=== PATIENT | male | born 1970 | race Caucasian/White ===

== ENCOUNTER 2022-10-17 04:11 | Day surgery (SDC) | payer OTHER ==
[2022-10-15 16:01] VITALS: BMI 29.7
[2022-10-17] MEDS ORDERED: KETAMINE HCL 500 MG/10 ML VIAL ONE (06:56)
[2022-10-17] MEDS ORDERED: SIMETHICONE 40 MG/0.6 ML BOTTLE ONE (07:43)
[2022-10-17 08:35] VITALS: RESP 22
[2022-10-17 08:48] VITALS: PULSE 83
[2022-10-17 09:16] VITALS: BP 117/80; TEMP 98
== END 2022-10-17 09:35 | disposition home or self-care (01) ==
LOC: JASU-ENDO 04:11 → MERGE 08:00 → JASU-ENDO 09:35
PROVIDERS: ATTEND Internal Medicine Gastroenterology
PROC: 0DJD8ZZ Inspection of Lower Intestinal Tract, Via Natural or Artificial Opening Endoscopic (ICD-10-PCS; principal; 2022-10-17 08:00)
DX: Z12.11 Encounter for screening for malignant neoplasm of colon (principal); K64.8 Other hemorrhoids; K57.30 Diverticulosis of large intestine without perforation or abscess without bleeding

== ENCOUNTER 2022-12-05 04:23 | Day surgery (SDC) | payer OTHER ==
[2022-10-29 16:22] VITALS: BMI 27.3
[2022-12-05 13:29] VITALS: TEMP 98
[2022-12-05 13:32] VITALS: BP 144/95; PULSE 70; RESP 16
== END 2022-12-05 13:38 | disposition home or self-care (01) ==
LOC: JASU-ENDO 04:23
PROVIDERS: ATTEND Internal Medicine Gastroenterology
PROC: 0DB78ZX Excision of Stomach, Pylorus, Via Natural or Artificial Opening Endoscopic, Diagnostic (ICD-10-PCS; 2022-12-05)
PROC: 0DB68ZX Excision of Stomach, Via Natural or Artificial Opening Endoscopic, Diagnostic (ICD-10-PCS; principal; 2022-12-05 11:00)
DX: K29.50 Unspecified chronic gastritis without bleeding (principal); B96.81 Helicobacter pylori [H. pylori] as the cause of diseases classified elsewhere; I10 Essential (primary) hypertension
CPT/HCPCS: 88305-TC; 88341-TC; 88342-TC

== ENCOUNTER 2023-07-09 04:58 | Day surgery (SDC) | payer OTHER ==
[2023-07-08 12:48] VITALS: BMI 28.1
[~2023-07-09 04:58] MED LIST: ACETAMINOPHEN 325 MG TABLET (FP) PO PRN; OFLOXACIN 0.3% OPHTHALMIC SOLUTION 5 ML BOTTLE OP SCH; VANCOMYCIN 500 MG VIAL (RESTRICTED TO ID ONLY) IVPB ONE
[2023-07-09] MEDS ORDERED: LIDOCAINE HCL/PF 1% SDV 5ML VIAL ONE (07:12)
[2023-07-09] MEDS ORDERED: TETRACAINE 0.5% OPHTH SOLN 2 ML BOTTLE ONE (07:27)
[2023-07-09] MEDS ORDERED: POVIDONE-IODINE 5% OPHTHALMIC PREP 30 ML SOLUTION ONE (07:27)
[2023-07-09] MEDS ORDERED: TRYPAN BLUE 0.5 ML DISP.SYRIN ONE (07:28)
[2023-07-09] MEDS: KETOROLAC TROMETHAMINE 0.5% EYE DROP 1 DROP DROPS OP SCH ×3 (10:40→10:50)
[2023-07-09] MEDS: TROPICAMIDE 1% OPHTH SOLN 15 ML BOTTLE OP SCH ×3 (10:40→10:50)
[2023-07-09] MEDS: PHENYLEPHRINE 2.5% OPHTH SOLN 15 ML BOTTLE OP SCH ×3 (10:40→10:50)
[2023-07-09] MEDS: CYCLOPENTOLATE HCL 1% OPHTH SOLN 2 ML BOTTLE OP SCH ×3 (10:40→10:50)
[2023-07-09 10:47] VITALS: RESP 20
[2023-07-09] MEDS ORDERED: TETRACAINE 0.5% OPHTH SOLN 2 ML BOTTLE TP ONE (12:20)
[2023-07-09] MEDS ORDERED: POVIDONE-IODINE 5% OPHTHALMIC PREP 30 ML SOLUTION OD ONE (12:21)
[2023-07-09] MEDS ORDERED: BSS (NA/CA/MG/K) BALANCED SALT SOLUTION OPHTH SOLN 15 ML BOTTLE OD ONE (12:29)
[2023-07-09] MEDS ORDERED: CHONDROITIN SU A/HYALUR SOD 1 KIT IO ONE (12:30)
[2023-07-09] MEDS ORDERED: LIDOCAINE HCL 1% PRESERVATIVE FREE - 30ML VIAL IO ONE (12:30)
[2023-07-09] MEDS ORDERED: TRYPAN BLUE 0.5 ML DISP.SYRIN IO ONE (12:30)
[2023-07-09] MEDS ORDERED: EPINEPHrine/PF 1 MG/1 ML (1:1,000) AMPULE SQ ONE (12:38)
[2023-07-09] MEDS ORDERED: VANCOMYCIN 500 MG VIAL (RESTRICTED TO ID ONLY) IVPB ONE (12:57)
[2023-07-09 13:28] VITALS: TEMP 98.4
[2023-07-09 14:01] VITALS: BP 130/81; PULSE 80
== END 2023-07-09 13:58 | disposition home or self-care (01) ==
LOC: JASU-SURG 04:58
PROVIDERS: ATTEND Ophthalmology
PROC: 08RJ3JZ Replacement of Right Lens with Synthetic Substitute, Percutaneous Approach (ICD-10-PCS; principal; 2023-07-09 12:00)
DX: H26.9 Unspecified cataract (principal)
CPT/HCPCS: V2632